=== PATIENT | male | born 1945 | race Caucasian/White ===

== ENCOUNTER → 2018-11-05 | Outpatient (CLI) | payer MEDICARE, OTHER ==
--- NOTE | 2018-11-05 15:05 | RAD ---
Left lower extremity venous doppler ultrasound History: Left leg pain and swelling Comparison: None Findings: Multiple grayscale, color, and duplex spectral analysis sonographic images were acquired of the left lower extremity veins to evaluate for the presence of DVT. There is normal phasicity. Normal compression, color-flow, and augmentation is demonstrated from the left common femoral to the popliteal veins. There is normal color flow of the proximal greater saphenous and profunda femoris veins. There is normal color flow of segments of the calf veins. Sonographic images of the posterior calf region are submitted. There were 3 separate areas of complex echogenicity in this region not associated with significant hypervascularity on color Doppler imaging. Largest measures up to 6.2 x 6 x 2.2 cm, another 4.9 x 2.4 x 1.9 cm, the third 3.7 x 4.3 x 1.7 cm. Impression: 1. There is no evidence of deep venous thrombosis from the left common femoral to the popliteal veins. 2. There are 3 separate complex collections of the left posterior calf region. Sequela of hematomas would be a consideration although nonspecific. Electronically signed by: Tariq López MD (11/05/2018 3:02 PM) [id number]
== END | disposition home or self-care (01) ==
LOC: US 13:42 → EDBD 13:42
PROVIDERS: ATTEND Internal Medicine
DX: M79.605 Pain in left leg (principal); M79.89 Other specified soft tissue disorders
CPT/HCPCS: 93971